=== PATIENT | female | born 1950 | race Caucasian/White ===

== ENCOUNTER 2018-04-15 10:24 | Outpatient (REF) | payer MEDICARE, SELFPAY ==
[2018-04-15 21:38] LABS: Anion Gap 6.8 mmol/L (3-11); BUN 20 mg/dL (7-18); CO2 29.2 mmol/L (21.0-32.0); CREATININE 1.09 mg/dL (0.55-1.02); Calcium 8.8 mg/dL (8.5-10.1); Chloride 104 mmol/L (98-107); Cholesterol 244 mg/dL (50-200); Estimated GFR 49.92 (mL/min/1.73m2); Glucose 92 mg/dL (70-100); HDL Cholesterol 63 mg/dL (40-60); LDL CHOLESTEROL 166 mg/dL (<100); Sodium 140 mmol/L (136-145); TSH (W/Ref FT4) 3.43 uIU/mL (0.358-3.74); Triglyceride 97 mg/dL (30-150)
== END 2018-04-15 10:44 ==
LOC: NCHCN 10:24
PROVIDERS: PCP Nurse Practitioner Family; Visit Provider Physician Assistant Medical
DX: E03.9 Hypothyroidism, unspecified (principal); I10 Essential (primary) hypertension; E78.5 Hyperlipidemia, unspecified
CPT/HCPCS: 80048; 80061; 83721; 84443

== ENCOUNTER 2018-07-21 09:28 | Outpatient (REF) | payer MEDICARE, SELFPAY ==
[2018-07-21 22:21] LABS: Iron 75 ug/dL (50-175); Total Iron Binding Capacity 277 ug/dL (250-450); Transferrin Sat 27 % (15-50)
[2018-07-21 22:26] LABS: Abs Immature Grans 0.01 k/cumm (0.0-0.09); Absolute Basophil Count 0.02 k/cumm (0.0-0.2); Absolute Eosinophil Count 0.12 k/cumm (0.0-0.7); Absolute Lymphocyte Count 2.02 k/cumm (1.2-3.4); Absolute Monocyte Count 0.46 k/cumm (0.11-0.7); Absolute Neutrophil Count 2.78 k/cumm (1.2-6.7); Basophils % 0.4; Eosinophils % 2.2; HCT 43.3 % (36.0-46.0); HGB 14.5 g/dL (12.0-15.5); Immature Grans % 0.2; Lymphocytes % 37.3; Mean Corp. HGB Concentration 33.5 g/dL (32.0-36.0); Mean Corpuscular Hemoglobin 32.4 pg (27.0-33.0); Mean Corpuscular Volume 96.9 fL (80-95); Mean Platelet Volume 9.9 fL (8.0-11.0); Monocytes % 8.5; Neutrophils % 51.4; Platelet Count 204 x1000/uL (130-400); RBC 4.47 m/cumm (4.00-5.20); RBC Distribution Width 12.9 % (11.7-14.6); White Blood Cell Count 5.41 k/cumm (4.4-10.8)
[2018-07-21 22:37] LABS: Ferritin 125 ng/mL (8-388)
== END 2018-07-21 09:48 ==
LOC: NCHCN 09:28
PROVIDERS: PCP Nurse Practitioner Family; Visit Provider Nurse Practitioner Family
DX: L65.9 Nonscarring hair loss, unspecified (principal)
CPT/HCPCS: 82728; 83540; 83550; 85025

== ENCOUNTER 2018-09-12 07:50 | Outpatient (REF) | payer MEDICARE, SELFPAY ==
[2018-09-12 19:30] LABS: TSH 1.05 uIU/mL (0.358-3.74)
== END 2018-09-12 08:10 ==
LOC: NCHCN 07:50
PROVIDERS: PCP Nurse Practitioner Family; Visit Provider Nurse Practitioner Family
DX: E03.9 Hypothyroidism, unspecified (principal); L65.9 Nonscarring hair loss, unspecified
CPT/HCPCS: 84443

== ENCOUNTER 2018-09-18 15:31 | Outpatient (REF) | payer MEDICARE, SELFPAY ==
[2018-09-18 21:21] LABS: Anion Gap 8.9 mmol/L (3-11); BUN 18 mg/dL (7-18); CO2 28.1 mmol/L (21.0-32.0); CREATININE 0.96 mg/dL (0.55-1.02); Calcium 9.2 mg/dL (8.5-10.1); Chloride 103 mmol/L (98-107); Estimated GFR 57.63 (mL/min/1.73m2); Glucose 87 mg/dL (70-100); Potassium 4.2 mmol/L (3.5-5.1); Sodium 140 mmol/L (136-145)
== END 2018-09-18 15:51 ==
LOC: NCHCN 15:31
PROVIDERS: PCP Nurse Practitioner Family; Visit Provider Nurse Practitioner Family
DX: E03.9 Hypothyroidism, unspecified (principal); I10 Essential (primary) hypertension; L65.9 Nonscarring hair loss, unspecified
CPT/HCPCS: 80048

== ENCOUNTER 2019-04-22 09:52 | Outpatient (REF) | payer MEDICARE, SELFPAY ==
[2019-04-22 20:46] LABS: Calculated LDL 149 mg/dL; Cholesterol 218 mg/dL (50-200); HDL Cholesterol 60 mg/dL (40-60); Triglyceride 48 mg/dL (30-150)
== END 2019-04-22 10:12 ==
LOC: NCHCN 09:52
PROVIDERS: PCP Nurse Practitioner Family; Visit Provider Nurse Practitioner Family
DX: E78.5 Hyperlipidemia, unspecified (principal)
CPT/HCPCS: 80061

== ENCOUNTER 2019-12-01 18:27 | Outpatient (REF) | payer MEDICARE, SELFPAY ==
[2019-12-01 19:26] LABS: Anion Gap 6.5 mmol/L (3-11); BUN 18 mg/dL (7-18); CO2 29.5 mmol/L (21.0-32.0); CREATININE 1.18 mg/dL (0.55-1.02); Calcium 9.8 mg/dL (8.5-10.1); Chloride 102 mmol/L (98-107); Estimated GFR 45.28 (mL/min/1.73m2); Glucose 95 mg/dL (74-106); Potassium 4.1 mmol/L (3.5-5.1); Sodium 138 mmol/L (136-145); TSH (W/Ref FT4) 1.08 uIU/mL (0.36-3.74)
== END 2019-12-01 18:47 ==
LOC: NCHCN 18:27
PROVIDERS: PCP Nurse Practitioner Family; Visit Provider Nurse Practitioner Family
DX: E03.9 Hypothyroidism, unspecified (principal); I10 Essential (primary) hypertension
CPT/HCPCS: 80048; 84443

== ENCOUNTER 2020-06-29 18:06 | Outpatient (REF) | payer MEDICARE, SELFPAY ==
[2020-06-29 21:04] LABS: Anion Gap 7.8 mmol/L (3-11); BUN 23 mg/dL (7-18); CO2 29.2 mmol/L (21.0-32.0); CREATININE 1.14 mg/dL (0.55-1.02); Calcium 9.2 mg/dL (8.5-10.1); Calculated LDL 163 mg/dL (<100); Chloride 104 mmol/L (98-107); Cholesterol 237 mg/dL (<200); Estimated GFR 46.99 (mL/min/1.73m2); Glucose 96 mg/dL (74-106); HDL Cholesterol 63 mg/dL (40-60); Sodium 141 mmol/L (136-145); TSH 2.13 uIU/mL (0.36-3.74); Triglyceride 59 mg/dL (<150)
== END 2020-06-29 18:26 ==
LOC: NCHCN 18:06
PROVIDERS: PCP Nurse Practitioner Family; Visit Provider Nurse Practitioner Family
DX: I10 Essential (primary) hypertension (principal); E78.5 Hyperlipidemia, unspecified; F41.9 Anxiety disorder, unspecified
CPT/HCPCS: 80048; 80061; 84443

== ENCOUNTER 2020-10-24 15:54 | Outpatient (REF) | payer MEDICARE, SELFPAY ==
[2020-10-24 16:52] LABS: ALT 26 U/L (14-59); AST 17 U/L (15-37); HDL Cholesterol 64 mg/dL (40-60); LDL CHOLESTEROL 91 mg/dL (<100)
[2020-10-24 17:20] LABS: Creatine Kinase 112 U/L (26-192)
== END 2020-10-24 15:55 | disposition home or self-care (01) ==
LOC: NCHCN 15:54
PROVIDERS: PCP Nurse Practitioner Family; Visit Provider Nurse Practitioner Family
DX: I10 Essential (primary) hypertension (principal); E78.5 Hyperlipidemia, unspecified; E66.3 Overweight
CPT/HCPCS: 82550; 83721; 83718; 84450; 84460

== ENCOUNTER 2021-04-26 15:36 | Outpatient (REF) | payer MEDICARE, SELFPAY ==
[2021-04-26 14:28] LABS: Anion Gap 5.8 mmol/L (3-11); BUN 18 mg/dL (7-18); CO2 33.2 mmol/L (21.0-32.0); CREATININE 1.1 mg/dL (0.55-1.02); Calcium 9.7 mg/dL (8.5-10.1); Chloride 104 mmol/L (98-107); Estimated GFR 48.96 (mL/min/1.73m2); FREE T4 0.99 ng/dL (0.76-1.46); Glucose 95 mg/dL (74-106); Sodium 143 mmol/L (136-145); TSH 1.52 uIU/mL (0.36-3.74)
== END 2021-04-26 15:37 | disposition home or self-care (01) ==
LOC: NCHCN 15:36
PROVIDERS: PCP Nurse Practitioner Family; Visit Provider Nurse Practitioner Family
DX: E03.9 Hypothyroidism, unspecified (principal); N39.0 Urinary tract infection, site not specified; I10 Essential (primary) hypertension
CPT/HCPCS: 80048; 84439; 84443; 87086

== ENCOUNTER 2021-10-23 18:14 | Outpatient (REF) | payer MEDICARE, SELFPAY ==
[2021-10-23 14:53] LABS: ALT 21 U/L (14-59); AST 21 U/L (15-37); HDL Cholesterol 71 mg/dL (40-60); LDL CHOLESTEROL 61 mg/dL (<100); TSH 1.26 uIU/mL (0.36-3.74)
[2021-10-23 15:09] LABS: Creatine Kinase 136 U/L (26-192)
[2021-10-23 15:43] LABS: Vitamin D 25 Total 22.8 ng/mL (30-100)
== END 2021-10-23 18:15 | disposition home or self-care (01) ==
LOC: NCHCN 18:14
PROVIDERS: PCP Nurse Practitioner Family; Visit Provider Nurse Practitioner Family
DX: I10 Essential (primary) hypertension (principal)
CPT/HCPCS: 82306; 82550; 83721; 83718; 84443; 84450; 84460

== ENCOUNTER 2022-04-23 16:49 | Outpatient (REF) | payer MEDICARE, SELFPAY ==
[2022-04-23 16:39] LABS: HCT 41.4 % (36.0-46.0); MCH 32.2 pg (27.0-33.0); MCHC 33.8 % (32.0-36.0); MCV 95 fL (80-95); MPV 9.7 fL (8.0-11.0); Platelet Count 173 10^3/uL (130-400); RBC 4.35 10^6/uL (3.93-5.22); RDW 12.5 % (11.7-14.6); RDW-SD 44.4 fL; WBC 5.59 10^3/uL (4.4-10.8)
[2022-04-23 16:55] LABS: ESR 11 mm/hr (0-30)
[2022-04-23 18:51] LABS: Vitamin D 25 Total 32.6 ng/mL (30-100)
[2022-04-23 19:10] LABS: Anion Gap 9.5 mmol/L (3-11); BUN 20 mg/dL (7-18); C-Reactive Protein 0.13 mg/dL (0.0-0.3); CO2 28.5 mmol/L (21.0-32.0); CREATININE 1.1 mg/dL (0.55-1.02); Calcium 9.6 mg/dL (8.5-10.1); Chloride 103 mmol/L (98-107); Creatine Kinase 110 U/L (26-192); Estimated GFR 53.39 (mL/min/1.73m2); Glucose 100 mg/dL (74-106); Potassium 3.5 mmol/L (3.5-5.1); Sodium 141 mmol/L (136-145); TSH 0.99 uIU/mL (0.36-3.74)
[2022-04-23 19:44] LABS: FREE T4 1.22 ng/dL (0.76-1.46)
== END 2022-04-23 16:50 | disposition home or self-care (01) ==
LOC: NCHCN 16:49
PROVIDERS: PCP Nurse Practitioner Family; Visit Provider Nurse Practitioner Family
DX: I10 Essential (primary) hypertension (principal); E66.3 Overweight; E78.5 Hyperlipidemia, unspecified; M79.601 Pain in right arm; M62.81 Muscle weakness (generalized)
CPT/HCPCS: 80048; 82306; 82550; 85027; 85652; 84439; 84443; 86140

== ENCOUNTER 2022-06-11 10:51 | Outpatient (REF) | payer MEDICARE, SELFPAY ==
[2022-06-11 16:51] LABS: FREE T4 0.86 ng/dL (0.76-1.46); TSH 9.53 uIU/mL (0.36-3.74)
== END 2022-06-11 10:52 | disposition home or self-care (01) ==
LOC: NCHCN 10:51
PROVIDERS: PCP Nurse Practitioner Family; Visit Provider Nurse Practitioner Family
DX: E03.9 Hypothyroidism, unspecified (principal)
CPT/HCPCS: 84439; 84443

== ENCOUNTER 2022-07-03 18:07 | Outpatient (REF) | payer MEDICARE, SELFPAY ==
[2022-07-03 16:26] LABS: FREE T4 1.13 ng/dL (0.76-1.46); TSH 3.52 uIU/mL (0.36-3.74)
== END 2022-07-03 18:08 | disposition home or self-care (01) ==
LOC: NCHCN 18:07
PROVIDERS: PCP Nurse Practitioner Family; Visit Provider Nurse Practitioner Family
DX: E03.9 Hypothyroidism, unspecified (principal)
CPT/HCPCS: 84439; 84443

== ENCOUNTER 2023-04-03 10:04 | Outpatient (REF) | payer MEDICARE, SELFPAY ==
[2023-04-03 17:26] LABS: Anion Gap 4.4 mmol/L (3-11); BUN 20 mg/dL (7-18); CO2 30.6 mmol/L (21.0-32.0); CREATININE 1.2 mg/dL (0.55-1.02); Calculated LDL 180 mg/dL (<100); Chloride 101 mmol/L (98-107); Cholesterol 258 mg/dL (<200); Glucose 106 mg/dL (74-106); HDL Cholesterol 61 mg/dL (40-60); Potassium 3.8 mmol/L (3.5-5.1); Sodium 136 mmol/L (136-145); Triglyceride 89 mg/dL (<150)
== END 2023-04-03 10:05 | disposition home or self-care (01) ==
LOC: NCHCN 10:04
PROVIDERS: PCP Nurse Practitioner Family; Visit Provider Nurse Practitioner Family
DX: I10 Essential (primary) hypertension (principal); E78.5 Hyperlipidemia, unspecified
CPT/HCPCS: 80048; 80061

== ENCOUNTER 2023-07-04 16:10 | Outpatient (REF) | payer MEDICARE, SELFPAY ==
[2023-07-04 17:42] LABS: TSH (W/Ref FT4) 1.21 uIU/mL (0.36-3.74)
== END 2023-07-04 16:11 | disposition home or self-care (01) ==
LOC: NCHCN 16:10
PROVIDERS: PCP Nurse Practitioner Family; Visit Provider Nurse Practitioner Family
DX: E03.9 Hypothyroidism, unspecified (principal)
CPT/HCPCS: 84443

== ENCOUNTER 2023-10-01 04:32 | Outpatient (CLI) | payer MEDICARE, SELFPAY ==
[2023-10-01 13:31] LABS: HCT 43.9 % (36.0-46.0); HGB 14.7 g/dL (11.2-15.7); MCH 32.4 pg (27.0-33.0); MCHC 33.5 % (32.0-36.0); MCV 97 fL (80-95); MPV 8.6 fL (8.0-11.0); Platelet Count 187 10^3/uL (130-400); RBC 4.54 10^6/uL (3.93-5.22); RDW-SD 46.7 fL
[2023-10-01 14:03] LABS: Anion Gap 8.4 mmol/L (3-11); BUN 18 mg/dL (7-18); CO2 29.6 mmol/L (21.0-32.0); CREATININE 1.1 mg/dL (0.55-1.02); Calcium 9.7 mg/dL (8.5-10.1); Chloride 104 mmol/L (98-107); Estimated GFR 52.73 (mL/min/1.73m2); Glucose 101 mg/dL (74-106); Sodium 142 mmol/L (136-145)
== END 2023-10-01 04:33 | disposition home or self-care (01) ==
LOC: LBO 04:32
PROVIDERS: PCP Nurse Practitioner Family; Visit Provider Obstetrics & Gynecology Gynecology
DX: Z01.818 Encounter for other preprocedural examination (principal)
CPT/HCPCS: 36415; 80048; 85027; 86850; 86900; 86901

== ENCOUNTER 2023-10-02 10:11 | Observation (INO) | payer MEDICARE, SELFPAY ==
[2023-10-02] VITALS (14 sets, daily range): BP systolic 122–169; BP diastolic 66–81; PULSE 60–87; RESP 16–17; TEMP 35.1–37.1; O2SAT 92–98; BMI 27.2
[2023-10-02] MEDS: Lactated Ringers 1,000 ML 125 ML IV ×3 (06:51→19:49)
--- NOTE | 2023-10-02 07:00 | W.ANESPRE ---
General Info Date of Service Date Performed: 10/02/23 Height: 5 ft 2 in Weight: 67.6 kg Body Mass Index (BMI): 27.2 Surgical Procedure: Operation Date: 10/02/23 07:40 Proposed Procedure Side Surgeon p Hysterectomy Vaginal Laparoscopic Assist, BSO, Uterosacral Ligament Suspension Luz Forman MD Meds Allergies and Home Medications Allergies Allergy/AdvReac Type Severity Reaction Status Date / Time Beta-Blockers Allergy Mild Other (See Verified 10/02/23 06:25 (Beta-Adrenergic Bloc Comment) Home Medication Medication Instructions Recorded aspirin 81 mg tablet,delayed 81 mg PO DAILY 01/07/13 release (Aspir-) losartan 50 mg tablet 50 mg PO DAILY 01/07/13 calcium carbonate 500 mg-vitamin 1 tab PO DAILY 06/05/23 D3 3.125 mcg (125 unit) tablet levothyroxine 25 mcg tablet 75 mcg PO DAILY 06/05/23 cholecalciferol (vitamin D3) 25 25 mcg PO DAILY 09/30/23 mcg (1,000 unit) capsule (Vitamin D3) Current Visit Medications: Current Medications Generic Name Dose Route Start Last Admin Trade Name Freq PRN Reason Stop Dose Admin Ringer's Solution 1,000 mls @ 125 mls/hr 10/02/23 06:00 10/02/23 06:51 IV 10/02/23 23:59 125 mls/hr INFUSION JASMYN Administration Cefazolin Sodium/Dextrose 2 gm in 50 mls @ 100 mls/hr 10/02/23 06:00 Ancef Duplex IVPB 10/02/23 23:59 PREOP JASMYN IV Miscellaneous Supplies 1 each 10/02/23 06:00 Iv Access IV 10/02/23 23:59 DIRECTED JASMYN Sodium Chloride 0 ml 10/02/23 06:00 Normal Saline Flush 10 Ml Syr IV 10/02/23 23:59 PRN PRN Sodium Chloride 0 ml 10/02/23 06:00 Normal Saline 10 Ml Vial IJ 10/02/23 23:59 DIRECTED PRN Sterile Water 0 ml 10/02/23 06:00 Water,Injection,Sterile 10 Ml Vial IJ 10/02/23 23:59 DIRECTED PRN PFSH Active Problems Active Problems: Problem Status Onset Code Preoperative exam for gynecologic surgery Z01.818 First degree uterine prolapse N81.2 Pelvic pressure in female R10.2 Hx of cholecystectomy Z90.49 Hypothyroid E03.9 Essential hypertension I10 Surgical History Surgical History History of tubal ligation Tobacco Smoking/Tobacco Use Status: Never Alcohol Alcohol Intake: never Substance Use Substance use: Never Substance use type: does not use Prental History History 1 Para 1 Hx # Term Pregnancies 1 Multiple births Hx # Pregnancies Ectopic pregnancies AB induced Hx Number of Living Children 1 AB spontaneous Vital Signs and Lab Results Vital Signs Most Recent Vital Signs in EMR: Most Recent Vital Signs Temp Pulse Resp BP Pulse Ox 36.5 C 75 16 176/103 H 98 10/02/23 06:28 10/02/23 06:28 10/02/23 06:28 10/02/23 06:28 10/02/23 06:28 Lab Results Blood Type / Crossmatch: Patient ABO/Rh A Positive 10/01/23 Antibody Screen NEGATIVE 10/01/23 Complete Blood Count: White Blood Count 5.80 10^3/uL (4.4-10.8) 10/01/23 13:19 Red Blood Count 4.54 10^6/uL (3.93-5.22) 10/01/23 13:19 Hemoglobin 14.7 g/dL (11.2-15.7) 10/01/23 13:19 Hematocrit 43.9 % (36.0-46.0) 10/01/23 13:19 Platelet Count 187 10^3/uL (130-400) 10/01/23 13:19 Complete Metabolic Panel: Sodium 142 mmol/L (136-145) 10/01/23 13:19 Potassium 4.0 mmol/L (3.5-5.1) 10/01/23 13:19 Chloride 104 mmol/L (98-107) 10/01/23 13:19 Carbon Dioxide 29.6 mmol/L (21.0-32.0) 10/01/23 13:19 BUN 18 mg/dL (7-18) 10/01/23 13:19 Creatinine 1.1 mg/dL (0.55-1.02) H 10/01/23 13:19 Est GFR (CKD-EPI 2020) 52.73 (mL/min/1.73m2) 10/01/23 13:19 Calcium 9.7 mg/dL (8.5-10.1) 10/01/23 13:19 Glucose 101 mg/dL (74-106) 10/01/23 13:19 Liver Function Panel: No Data to Display Coagulation Panel: No Data to Display Cardiac Panel: No Data to Display Arterial Blood Gas: No Data to Display Venous Blood Gas: No Data to Display Pancreas Panel: No Data to Display Thyroid Panel: No Data to Display Infectious Disease: No Data to Display Blood Cultures: No Data to Display Toxicology Panel: No Data to Display Imaging and Studies Imaging and Studies Study information below may be from another EMR and interpreted by another provider. Please see original notes in EMR for more complete details. Stress Test Summary: 01/07/13 RESULTS: 1. CHEST PAIN: None. 2. ARRHYTHMIA: Rare single PAC. 3. EKG CHANGES: Up to 2mm horizontal ST depressions in the inferior and anterolateral leads with exercise, resolved by 21 minutes of recovery. 4. HEART/BLOOD PRESSURE RESPONSE: Normal. 5. FUNCTIONAL CAPACITY: Average. IMPRESSION/CONCLUSION: The test is positive for ischemia. Will arrange Cardiology follow-up. Anesthesia Assessment and Plan Anesthesia History Personal History: No History of Anesthesia Complications Family History: No Family History of Anesthesia Complications Exercise Tolerance Exercise Tolerance: Metabolic Equivalents>4 Pertinent Negatives Pertinent Negatives: No Symptoms of GERD, No Major Cardiovascular Symptoms or Complaints, No Major Pulmonary Symptoms or Complaints and No History of CVA/TIA Cardiac & Pulmonary Exam Cardiac Exam: Normal S1/S2 Heart Sounds Pulmonary Exam: Clear Bilateral Breath Sounds Implantable Cardiac Device Does patient have a Pacemaker or an ICD?: No Airway Exam Known Difficult Airway: No Mallampati Class: 3 Mouth Opening: Normal (> 3cm) Thyromental Distance: Greater than 3 cm Neck Range of Motion: Full ROM Neck Circumference: Normal Teeth Condition: Normal Dentition ASA Classification ASA Score: ASA 2 Emergency Case?: No NPO Status NPO Status: NPO Clears >2 hours, Solids >8 hours Anesthesia Plan Resuscitation Status: Full Code Anesthesia Technique: General Anesthesia Airway Planned: Endotracheal Tube Pain Management: Intrathecal Analgesia Monitors Used: Standard Monitors
[2023-10-02] MEDS: ceFAZolin 2 GM/50 ML BAG IVPB (07:32)
[2023-10-02] MEDS: Bupivacaine 0.25% Pres-Free 30 ML VIAL (08:10)
[2023-10-02] MEDS: Lidocaine 1% Multi-Dose W/EPI 1/100,000 50 ML VIAL (09:00)
--- NOTE | 2023-10-02 09:05 | UTER_PTH ---
PATIENT: Patricia Morales LOC: U#:[id number] AGE/SX: 73/F ROOM: 230 RE10/02/[address]: Luz Forman : 1950 BED: A DIS: 10/03/2023 SPEC #: [id number] RECD: 10/02/23 12:42 STATUS: NAFISA REQ #: [id number] ROGER: 10/02/23 09:[address]: Luz Forman DEPT: Surgical Specimen RECD BY: Jocelyn Michelle ENTERED: 10/02/23 12:43 SP TYPE: UTER OTHR DR: Marisol Andrew Tissues: 1 - UTERUS W OR W/O OVARIES(NOT TUMOR/PROLAPSE) 2 - LABIA BX Procedures: GROSS AND MICRO LEVEL 4 Comments: [id number]
--- NOTE | 2023-10-02 10:43 | W.ANESPOSTOP ---
Postoperative Evaluation Date, Time and Location Date Performed: 10/02/23 Time Performed: 10:43 Patient Location: PACU Vital Signs Most Recent Imported Vital Signs: Most Recent Vital Signs Temp Pulse Resp BP Pulse Ox 36.5 C 74 16 134/66 96 10/02/23 10:40 10/02/23 10:40 10/02/23 10:40 10/02/23 10:40 10/02/23 10:40 Pain Score Most Recent Pain Score: Most Recent Pain Score Pain Level 0 10/02/23 10:40 Assessment Mental Status: Awake (Alert & Oriented to Patient Baseline) Airway and Respiratory Function: Patent airway with normal (patient baseline) respiratory exam Cardiovascular Function: Hemodynamically Stable Hydration Status: Adequately Hydrated (reports dry mouth but tolerated sips of water ) Nausea & Vomiting: No Nausea or Vomiting Pain: Pt. Denies Any Pain Peripheral Nerve Block: Patient did not receive a nerve block
--- NOTE | 2023-10-02 13:52 | ROE_ITS ---
Date of service: 10/02/23 Time of Service: 13:52 Operative Note Operative Note DATE OF PROCEDURE: 10/02/23 PRE-OP DIAGNOSIS: Vaginal pressure POST-OP DIAGNOSIS: same Solitary serosal fibroid of the uterus. PROCEDURE: Laparoscopic assisted vaginal hysterectomy with bilateral salpingo-oophorectomy, Mcall's culdoplasty, bladder cystoscopy and skinning excision of hyper pigmented lesion on the L labia minora. SURGEON: Luz Forman ASSISTING SURGEON: Judith Boogie Refer to Anesthesia Record ESTIMATED BLOOD LOSS: 100 PATHOLOGY: other (Uterus, ovaries, fallopian tubes and L skin biopsy of labial are of hyper-pigmentation.) COMPLICATIONS: None Patient was transported to: PACU Patient's condition: stable Indications: 73yo female with symptoms of vaginal pressure since April,. Her initial sensation of a fullness in the vagina occurred during straining with Valsalva. Physical exam in May, revealed mild uterine prolapse and Stage 1 cystocele and rectocele. Patient's symptoms persisted despite daily use of Miralax to avoid constipation. Decision was made to proceed with a hysterectomy and BSO. Findings: Small uterus with central lower uterine segment serosal fibroid. Exam under anesthesia did not reveal any greater degree of pelvic organ prolapse than what had been diagnosed previously. Nl appearing ovaries and pelvis. Procedure Description: Patient was taken to the operating room where she was placed in the sitting position and spinal anesthesia was administered. She received 2 g of Ancef prior to skin incision. She was then placed in the dorsal supine position and general endotracheal anesthesia was administered without difficulty. She was then placed in the dorsal lithotomy position in [facility] stirrups with SCDs in place. After being prepped and draped in the usual sterile fashion a surgical timeout was performed. Rivera catheter was placed to gravity drainage. A bivalve speculum was placed in the vagina the anterior lip of the cervix was grasped with a single-tooth tenaculum. A [employer] uterine manipulator was successfully inserted into the uterine cavity and the device left in place. Attention was then turned to the patient's abdomen. The umbilical fold was infiltrated with quarter percent Marcaine without epinephrine. A scalpel was then used to make a 12mm vertical skin incision in the umbilical fold. Two penetrating towel clips were used to tent up the skin and through the periumbilical incision a Veres needle was introduced into the abdomen with carbon dioxide as the distention medium. Intra-abdominal placement was confirmed by a drop in the intra-abdominal pressure. Once a pneumoperitoneum was established a 12 mm Visiport was placed under direct visualization and intra-abdominal placement confirmed by use of the laparoscope. Patient was then placed in Trendelenburg position. At two sites approximately 6 cm diagonally from the umbilical incision the skin was infiltrated with 1cc of 0.25% Marcaine without epinephrine, incised with a scalpel and two 5 mm lower ports were placed under direct visualization. After careful inspection of the pelvis a LigaSure electrocautery device was used to clamp, cauterize and transect the left infundibulopelvic ligament. The left round ligament and broad ligament were then clamped, cauterized and transected to the level of the lower uterine segment. The vesico-uterine peritoneum was incised and the the from the lower uterine segment and mobilized off of the body of the cervix. Bipolar electrocautery was used to clamp and cauterize the left uterine vessels at the entry point to the lower uterine segment. The pedicles of the left suspensory, round and broad ligaments were inspected and noted to be hemostatic. Similar technique was used on the on the contralateral side The infundibular pelvic, the round ligament, and right broad ligaments were sequentially clamped, cauterized and transected using the Ligasure device to the level of the insertion of the uterine artery. The remaining the vesicouterine peritoneum was incised across the lower uterine segment and the bladder flap created using the Ligasure device and gentle counter traction. All pedicles were inspected and noted to be hemostatic. Decision was made to proceed with the vaginal portion of the case. Laparoscopic instruments were removed from the ports , the pneumoperitoneum was reduced, and the was abdomen covered with sterile drape. A weighted vaginal speculum was placed in the vagina and the anterior and posterior lips of the cervix were grasped with Yang clamps. A solution of 1% lidocaine with dilute epinephrine was used to infiltrate the body of the cervix in a circumferential fashion followed by a circumferential incision of the cervical epithelium with Bovie electrocautery. The vesicouterine fascia was identified and the anterior cul-de-sac was entered using blunt and sharp dissection. Through this incision a curved right angled retractor was inserted and used to retract the bladder a way from the operative field. The posterior cul-de-sac was entered sharply and through the this incision a long billed weighted speculum was placed. The left and right uterosacral ligament complexes were identified clamped, transected and suture-ligated and the suture held long. The remaining right and left broad ligament attatchments were sequentially clamped, cauterized, and transected and the specimen was passed off of the operative field. All of the pedicle sites were inspected and were hemostatic. A Magaña culdoplasty was performed using 0 Vicryl suture beginning at the left uterosacral ligament proceeding across redundant cul-de-sac to terminate in the right uterosacral ligament. Suture was tied and provided satisfactory support of the posterior vaginal wall. The vaginal cuff was reapproximated in a vertical fashion with an interrupted suture of 0 Vicryl. On both the right and left labia minora there was a 2 cm area of hyperpigmentation. The left labia minora site was infiltrated with 1% lidocaine with epinephrine and the skin was tented up and a sample of the epidermis was obtained and passed off the operative field. The open biopsy site was cauterized with Bovie electrocautery it was hemostatic at the completion of the procedure. Instruments removed from the vagina and attention was again turned to the abdomen where a pneumoperitoneum was reestablished and the pelvis inspected using the laparoscope. The vaginal cuff was intact and was hemostatic as were the round ligament and broad ligament pedicles both at 15mmHg and when the pressure was temporarily reduced to 5mmHg. The instruments were removed from the port sites under direct visualization, the pneumoperitoneum reduced, and the ports removed. The fascia of the periumbilical skin incision was closed with interrupted suture of 0 Vicryl. The skin of all port site incisions were reapproximated with a subcuticular closure of 4-0 Monocryl and and covered with skin glue. A cystoscopy was performed with both ureteral jets patent with a brisk reflux of urine from each. The bladder was inspected and no evidence of sutures were present. Rivera catheter was reinserted to gravity drainage and the patient was placed in the dorsal supine position, awakened, extubated, and transported recovery area in stable condition. All sponge lap needle counts correct x2.
[2023-10-02] MEDS: Ketorolac 30 MG/ML VIAL IVP ×2 (17:37→22:22)
[2023-10-02] MEDS: diphenhydrAMINE 25 MG CAP PO (17:37)
[2023-10-02] MEDS: Normal Saline Flush 10 ML SYR IV (17:39)
[2023-10-02] MEDS: Docusate Sodium 100 MG CAP PO (19:48)
[2023-10-03 03:31] VITALS: BP 116/70; PULSE 81; RESP 17; TEMP 35.6; O2SAT 96
[2023-10-03] MEDS: Levothyroxine 75 MCG TAB PO (05:21)
[2023-10-03] MEDS: Ketorolac 30 MG/ML VIAL IVP (05:21)
[2023-10-03 06:29] LABS: HCT 35.4 % (36.0-46.0); HGB 12.2 g/dL (11.2-15.7); MCH 32.1 pg (27.0-33.0); MCHC 34.5 % (32.0-36.0); MCV 93 fL (80-95); MPV 9.5 fL (8.0-11.0); Platelet Count 166 10^3/uL (130-400); RDW 12.8 % (11.7-14.6); RDW-SD 44.1 fL; WBC 11.54 10^3/uL (4.4-10.8)
[2023-10-03 07:29] VITALS: BP 121/60; PULSE 71; RESP 15; TEMP 37.1; O2SAT 95
--- NOTE | 2023-10-03 08:24 | DSE_ITS ---
Date of service: 10/03/23 Time of Service: 08:24 DS: Diagnosis Discharge Diagnosis (1) History of laparoscopic-assisted vaginal hysterectomy: Status: Acute (2) History of bilateral salpingo-oophorectomy: Status: Acute (3) Vulvar lesion: Status: Acute Discharge Plan Disposition Patient Disposition: Home Condition: Stable Discharge Details Reason For Visit: Laparoscopic assisted vaginal hysterectomy with BS Admit Date/Time: 10/02/23 10:11 Admit Provider: Luz Forman Attending Provider: Luz Forman Primary Care Provider: Marisol Andrew [facility] Course Hospital Course: Patient was admitted the morning of surgery and underwent the above-stated procedure. Surgery was uncomplicated. She was discharged home on postop day 1 with pain controlled by NSAIDs. Tolerating a regular diet and voiding spontaneously. Her incisions are clean dry and intact. [facility]. She will take NSAIDs for pain control and a prescription for Percocet will be given to her and she can fill it as needed. Home Meds and New Rx's Prescriptions: No Action calcium carbonate-vitamin D3 500 mg-3.125 mcg (125 unit) tablet 1 tab PO DAILY losartan 50 MG tablet 50 mg PO DAILY aspirin [Aspir-81] 81 MG tablet,delayed release (DR/EC) 81 mg PO DAILY levothyroxine 25 mcg tablet 75 mcg PO DAILY cholecalciferol (vitamin D3) [Vitamin D3] 25 mcg (1,000 unit) capsule 25 mcg PO DAILY Discharge Instructions Stand Alone Forms: DSU Post Gyro Compass Tester SurgeryW/Incision Activity:: Activity as Tolerated Equipment/Supplies:: No Equipment Needed Diet:: As Tolerated Discharge Orders Discharge Orders: Discharge Order (Routine); Ordered 10/03/23 Ordered By: Luz Forman DS: Summary Time Spent with Patient providing and/or coordinating discharge services: Less than 30 minutes Status at Discharge Functional status at discharge: independent ambulation Overall status at discharge: patient is progressing back to baseline Mental Status: mental status grossly normal Speech and Movement: speech and movement normal Mood: congruent mood Affect: normal affect Quality:SDOH Health Related Social Needs: No Data to Display Exam Const General: no acute distress Nutritional Appearance: average body habitus Orientation: alert, awake and oriented x3 Resp Effort & Inspection: normal respiratory effort Auscultation: clear to auscultation bilaterally Cardio Rate: regular rate Rhythm: regular rhythm GI Inspection: normal to inspection and incision (Covered with Band-Aid) Palpation: soft, no masses and nontender General: deferred External Female Exam: other (Vulva biopsy site not examined) Skin General skin exam: no rashes or lesions noted Extrem General: normal to inspection Psych Appearance: grossly normal Mental Status: mental status grossly normal Speech and Movement: speech and movement normal Mood: congruent mood Affect: normal affect Attitude: cooperative Thought Process: normal DS: Data Vitals/I&O Vitals and I&O: Vital Signs Temperature 98.8 F 10/03/23 07:29 Temperature Source Tympanic 10/03/23 07:29 Pulse 71 10/03/23 07:29 Pulse Rhythm Regular 10/03/23 00:02 Respiratory Rate 15 10/03/23 07:29 Respiratory Effort Normal, Non-Labored 10/03/23 00:02 Respiratory Depth Normal 10/03/23 00:02 Respiratory Pattern Normal 10/03/23 00:02 Blood Pressure 121/60 10/03/23 07:29 Pulse Oximetry 95 10/03/23 07:29 Respiratory End-tidal CO2 38 10/02/23 10:40 Oxygen Delivery Method Room Air 10/03/23 07:29 Oxygen Flow Rate 0 10/03/23 07:29 Pain Level 0 10/03/23 07:29 Intake & Output 10/02/23 10/02/23 10/03/23 11:59 23:59 11:59 Intake Total 918.75 / 3468.75 2550 / 3468.75 562.5 / 562.5 Output Total 1425 / 1425 1200 / 1200 Balance 918.75 / 2043.75 1125 / 2043.75 -637.5 / -637.5 Weight 145 lb 4.8 oz Intake: IV 918.75 / 1918.75 1000 / 1918.75 562.5 / 562.5 Oral 1550 / 1550 Output: Urine 1425 / 1425 1200 / 1200 Other: Urine Color Indigo Green Pale Yellow Urine Appearance Clear Clear Clear Comment 200mL from munoz and 25mL from toilet Emesis Description None Voiding Methods Toilet Indwelling Catheter Data Completed and Pending Labs on day of discharge: Labs from last 24 hours 10/03/23 06:05 WBC 11.54 H RBC 3.80 L Hgb 12.2 D Hct 35.4 L MCV 93 D MCH 32.1 MCHC 34.5 RDW 12.8 Plt Count 166 MPV 9.5 PFSH All Active Problems (Updated 10/03/23 @ 08:25 by Luz Forman MD) Vulvar lesion (Acute) History of bilateral salpingo-oophorectomy (Acute) History of laparoscopic-assisted vaginal hysterectomy (Acute) Preoperative exam for gynecologic surgery (Acute) First degree uterine prolapse (Acute) Pelvic pressure in female (Acute) Hx of cholecystectomy (Chronic) Hypothyroid (Chronic) Essential hypertension (Acute) Surgical History (Updated 10/03/23 @ 08:25 by Luz Forman MD) History of tubal ligation Social History (Updated 06/30/23 @ 23:05 by Luz Forman MD) Smoking/Tobacco Use Status: Never Smoking risk assessment performed?: Yes Alcohol Intake: never Drug use: Never Substance use type: does not use Household members: spouse and other Details: [facility] Housing: house Number of Children: 1 current occupation: Retired. Former inspector returned materials at [employer] Sexually active: No Do you feel safe at home: Yes Do you feel safe in your relationship?: Yes Female Reproductive History Menstrual Menopause type: natural History History 1 Para 1 Hx # Term Pregnancies 1 Multiple births Hx # Pregnancies Ectopic pregnancies AB induced Hx Number of Living Children 1 AB spontaneous Time Spent with Patient Time Spent with Patient: <45 minutes Time was spent: preparing to see the patient(eg.review tests), obtaining and/or reviewing separately otained hiistory and ordering medications,tests, procedures
[2023-10-03] MEDS: Cholecalciferol (Vitamin D3) 1,000 UNIT TAB 1000 UNITS PO (08:28)
[2023-10-03] MEDS: Calcium 600mg/Vit D 200U TAB 1 TAB PO (08:28)
[2023-10-03] MEDS: Docusate Sodium 100 MG CAP PO (08:29)
[2023-10-03] MEDS: Losartan 50 MG TAB PO (08:29)
--- NOTE | 2023-10-03 13:48 | PDOC.CMPRO ---
Care Management Progress Note Progress Note Text Progress Note Text: Patricia was admitted and underwent a vaginal hysterectomy on 10/02/23. She did well and was able to discharge home this morning. [facility] was unable to meet with her before she left however no new services were needed. SDOH(Care Management) Screening Will the Patient Participate in the Screening?: Yes Do you worry about having a steady place to live?: no In the past 12 months, have you had to go without electric, gas, oil or water in your home?: no Have you or anyone in your house had to go without enough food to eat?: no Has lack of transportation kept you from medical appointments or from doing things needed for daily living?: no Has anyone in your support network made you feel unsafe for any reason?: no
== END 2023-10-03 10:11 | disposition home or self-care (01) ==
LOC: MS 10:51
PROVIDERS: Admitting Provider Obstetrics & Gynecology Gynecology; PCP Nurse Practitioner Family; Visit Provider Obstetrics & Gynecology Gynecology
PROC: 0UT9FZZ Resection of Uterus, Via Natural or Artificial Opening With Percutaneous Endoscopic Assistance (ICD-10-PCS; CPT 58552; principal; 2023-10-02 07:30)
DX: D25.2 Subserosal leiomyoma of uterus (principal); N81.2 Incomplete uterovaginal prolapse; N90.89 Other specified noninflammatory disorders of vulva and perineum; I10 Essential (primary) hypertension; E03.9 Hypothyroidism, unspecified; R10.2 Pelvic and perineal pain; N83.8 Other noninflammatory disorders of ovary, fallopian tube and broad ligament
CPT/HCPCS: 58552; 56605; 57268; 36415; 85027; 88305; 88307; G0378; J0131; J0665; J0690; J1100; J1885; J2001; J2004; J2250; J2274; J2371; J2405; J2704; J3010; J3475

== ENCOUNTER 2024-05-12 12:48 | Outpatient (REF) | payer MEDICARE, SELFPAY ==
[2024-05-12 17:48] LABS: Anion Gap 9.9 mmol/L (3-11); BUN 18 mg/dL (7-18); CO2 28.1 mmol/L (21.0-32.0); COMMENT (LAB VIEW ONLY) 64.18 mg/dL; Calcium 9.7 mg/dL (8.5-10.1); Calculated LDL 168 mg/dL (<100); Chloride 107 mmol/L (98-107); Cholesterol 259 mg/dL (<200); Estimated GFR 59.12 (mL/min/1.73m2); Glucose 99 mg/dL (74-106); HDL Cholesterol 74 mg/dL (40-60); Microalb ug/mg Crea 10.8 ug/mg Cr; Potassium 4.2 mmol/L (3.5-5.1); Sodium 145 mmol/L (136-145); TSH 2.03 uIU/mL (0.36-3.74); Triglyceride 85 mg/dL (<150)
== END 2024-05-12 12:49 | disposition home or self-care (01) ==
LOC: NCHCN 12:48
PROVIDERS: PCP Physician Assistant Medical; Visit Provider Physician Assistant Medical
DX: E03.9 Hypothyroidism, unspecified (principal)
CPT/HCPCS: 80048; 80061; 82043; 82570; 84443

== ENCOUNTER 2025-06-16 12:13 | Outpatient (REF) | payer MEDICARE, SELFPAY ==
[2025-06-16 17:09] LABS: HCT 42.3 % (36.0-46.0); HGB 14.3 g/dL (11.2-15.7); MCH 32.8 pg (27.0-33.0); MCHC 33.8 % (32.0-36.0); MCV 97 fL (80-95); MPV 9.2 fL (8.0-11.0); Platelet Count 189 10^3/uL (130-400); RBC 4.36 10^6/uL (3.93-5.22); RDW 12.6 % (11.7-14.6); RDW-SD 45.1 fL; WBC 6.16 10^3/uL (4.4-10.8)
[2025-06-16 17:22] LABS: Anion Gap 7.1 mmol/L (3-11); BUN 20 mg/dL (9-23); CO2 29.9 mmol/L (20.0-31.0); Calcium 9.5 mg/dL (8.3-10.6); Chloride 106 mmol/L (98-107); Glucose 106 mg/dL (74-106); Potassium 4.0 mmol/L (3.5-5.1); Sodium 143 mmol/L (136-145)
[2025-06-16 17:26] LABS: TSH (W/Ref FT4) 1.91 uIU/mL (0.55-4.78)
== END 2025-06-16 12:14 | disposition home or self-care (01) ==
LOC: NCHCN 12:13
PROVIDERS: PCP Physician Assistant Medical; Visit Provider Physician Assistant Medical
DX: N18.9 Chronic kidney disease, unspecified (principal); E03.9 Hypothyroidism, unspecified
CPT/HCPCS: 80048; 85027; 82043; 82570; 84443